=== PATIENT | male | born 1990 | race Caucasian/White ===

== ENCOUNTER 2017-10-30 21:04 | Emergency (ER) | payer OTHER ==
[2017-10-30 22:40] LABS: ALBUMIN 4.2 GM/DL (3.4-5.0); ALT (GPT) 15 U/L (12-78); ANION GAP 5 MEQ/L (5-15); AST (GOT) 13 U/L (15-37); BICARBONATE 29.4 MEQ/L (21.0-32.0); BLOOD UREA NITROGEN 7 MG/DL (7-18); CALCIUM 8.4 MG/DL (8.5-10.1); CHLORIDE 104 MEQ/L (98-107); CREATININE 0.97 MG/DL (0.60-1.30); GLOMERULAR FILTRATION RATE 95 ML/MIN (>89); GLUCOSE,RANDOM 95 MG/DL (74-106); MAGNESIUM 2.1 MG/DL (1.5-2.5); SODIUM (NA) 138 MEQ/L (136-145)
[2017-10-30 22:42] LABS: ALKALINE PHOSPHATASE 49 U/L (45-117); TOTAL BILIRUBIN ADULT 0.4 MG/DL (0.2-1.0); TOTAL PROTEIN 7.9 GM/DL (6.4-8.2)
[2017-10-31] MEDS: ACETAMINOPHEN 325 MG TAB PO (01:41)
[2017-10-31] MEDS: OSELTAMIVIR PHOSPHATE 75 MG CAP PO (01:41)
== END 2017-10-31 02:09 | disposition home or self-care (01) ==
LOC: NEPD 21:04
DX: J10.1 Influenza due to other identified influenza virus with other respiratory manifestations (principal); J45.909 Unspecified asthma, uncomplicated; R11.2 Nausea with vomiting, unspecified; R55 Syncope and collapse
CPT/HCPCS: 80053; 83735; 87804; 87804-59; 93005; 99284